=== PATIENT | male | born 1975 | race Asian ===

== ENCOUNTER 2019-10-22 00:03 | Emergency (ER) | payer OTHER ==
[~2019-10-22] VITALS: Ht 165.1 cm; Wt 81.6 kg
--- NOTE | 2019-10-22 00:17 | Emergency Room Report ---
History of Present Illness General Chief Complaint: Vomiting Source: Patient, Medical Record, EMS Present Illness HPI This is a 44-year-old male from a [place] [facility]. He presents with chief complaint of vomiting. Onset for last 4 hours. Vomiting is nonbloody nonbilious. No diarrhea. No fever or chills. Patient has a history of intracranial bleed with craniotomy. He has right-sided hemiplegia. Unable to get any other history from this patient because he is nonverbal. History is from [facility] [facility] note and EMS. Allergies: Coded Allergies: LISINOPRIL (Verified Allergy, Unknown, 10/22/19) NSAIDS (NON-STEROIDAL ANTI-INFLAMMA (Verified Allergy, Unknown, 10/22/19) Patient History Past Medical History: see triage record, old chart reviewed, CVA/TIA Past Surgical History: other - Craniotomy Pertinent Family History: none Social History: Denies: smoking Immunizations: other Reviewed Nursing Documentation: PMH: Agreed; PSxH: Agreed Nursing Documentation-PMH Hx Cardiac Problems: Yes - cardio myopathy; hf; anemia Hx Hypertension: Yes Hx Gastrointestinal Problems: Yes Hx Dialysis: No - ckd Hx Cerebrovascular Accident: Yes - tia Review of Systems Eye: Denies: eye pain, blurred vision ENT: Denies: ear pain, nose congestion, throat swelling Respiratory: Denies: cough, shortness of breath Cardiovascular: Denies: chest pain, palpitations Gastrointestinal: Reports: nausea, vomiting; Denies: abdominal pain, diarrhea Musculoskeletal: Denies: back pain, joint pain Skin: Denies: rash Neurological: Denies: headache, numbness Endocrine: Denies: increased thirst, increased urine Hematologic/Lymphatic: Denies: easy bruising All Other Systems: negative except mentioned in HPI Physical Exam Vital Signs Date Time Temp Pulse Resp B/P (MAP) Pulse Ox O2 Delivery O2 Flow Rate FiO2 10/22/19 00:02 97.5 74 18 138/96 (110) 96 Room Air Vitals normal Sp02 EP Interpretation: reviewed, normal General Appearance: well appearing, no apparent distress, alert Head: normocephalic, other - Left craniotomy Eyes: bilateral eye PERRL, bilateral eye EOMI ENT: hearing grossly normal, normal pharynx Neck: full range of motion, supple, no meningismus Respiratory: chest non-tender, lungs clear, normal breath sounds Cardiovascular #1: regular rate, rhythm, no murmur Gastrointestinal: normal bowel sounds, non tender, no mass, no organomegaly, no bruit, non-distended Musculoskeletal: back normal Neurologic: other - Right sided weakness Medical Decision Making Diagnostic Impression: Primary Impression: Vomiting Qualified Codes: R11.2 - Nausea with vomiting, unspecified ER Course Patient with nausea and vomiting. Could be an early enteritis. No evidence of any obstruction or acute abdomen. Better after Zofran and IV fluid. CT/MRI/US Diagnostic Results CT/MRI/US Diagnostic Results : Imaging Test Ordered: CT abdomen pelvis Impression Read by radiologist. Normal spleen. Left kidney stone. No obstruction. Normal appendix. No bowel obstruction. Last Vital Signs Date Time Temp Pulse Resp B/P (MAP) Pulse Ox O2 Delivery O2 Flow Rate FiO2 10/22/19 00:02 97.5 74 18 138/96 (110) 96 Room Air Status: improved Disposition: XFER SNF Condition: Improved Scripts Ondansetron Odt* (ZOFRAN ODT*) 4 Mg Tab.rapdis 4 MG BC EVERY 6 HOURS PRN for Nausea & Vomiting, #10 TAB 0 Refills Prov: Jose C Nascimento MD 10/22/19 Patient Instructions: Nausea and Vomiting, Adult Additional Instructions: Follow-up with your doctor in 2 3 days if not better. Return if symptoms worsen. Jose C Nascimento MD Oct 22, 2019 00:17
[2019-10-22 00:18] VITALS: BP 127/94
--- NOTE | 2019-10-22 00:18 | NUR ---
ED Nurse Note: Patient brought in by ambulance d/t nausea and vomiting lasting 4 hours prior to arrival, pt vomited x 6. Patient aao x 4, non ambulatory. Patient has hx of left side craniotomy. 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 No acute distress noted upon assessment. Addendum: 10/22/19 at 0112 by [facility] ED Nurse Note: Patient brought in by ambulance d/t nausea and vomiting lasting 4 hours prior to arrival, pt vomited x 6 prior to arrival. Patient aao x 3, nonverbal, non ambulatory. Patient able to make needs known through head nodding. Patient has hx of left side craniotomy. Patient's right arm contracted and per pt causes pain 10/10. 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 No acute distress noted upon assessment.
--- NOTE | 2019-10-22 00:24 | NUR ---
ED Nurse Note: Patient taken to CT in stable condition.
[2019-10-22 00:50] LABS: BASOPHILS % (AUTO) 1.5 % (0.0-2.0); EOSINOPHILS % (AUTO) 9.7 % (0.0-3.0); HEMOGLOBIN 13.3 G/DL (14.2-18.0); LYMPHOCYTES % (AUTO) 19.3 % (20.0-45.0); MEAN CORPUSCULAR VOLUME 88 FL (80-99); NEUTROPHILS % (AUTO) 63.5 % (45.0-75.0); PLATELET COUNT 252 K/UL (150-450); RED BLOOD COUNT 4.43 M/UL (4.70-6.10); RED CELL DISTRIBUTION WIDTH 12.2 % (11.6-14.8); WHITE BLOOD COUNT 7.6 K/UL (4.8-10.8)
--- NOTE | 2019-10-22 00:58 | Diagnostic Imaging Report ---
INDICATION: Abdominal pain TECHNIQUE: Continuous helical transaxial imaging of the abdomen and pelvis was obtained from the lung bases to the pubic symphysis. No intravenous contrast was administered. Coronal 2-D reformats were also obtained. Automatic Exposure Control was utilized. Total Dose length Product (DLP): 1333.[address] Dose Index Volume (CTDIvol): 20.9 mGy Comparison: none FINDINGS: Lungs: The visualized lung bases are clear. The heart is enlarged. Small hiatal hernia noted. Liver: No gross anomalies demonstrated. There is artifact from the patient's arms. Gallbladder/biliary system: No gallstones are identified. There is no evidence of intrahepatic or extrahepatic biliary ductal dilatation. Spleen: Unremarkable Pancreas: Unremarkable Kidneys: There is a tiny nonobstructive stone in the lower pole of the left kidney suspected. There is a small hypodensity nonspecific lower pole the left kidney. This could be cystic or solid and is indeterminate on the current study is obtained. The hypodensity measures about 18 mm. There is no hydronephrosis.. Adrenal glands: Unremarkable Bowel: Bowel gas pattern is nonobstructive. The appendix is normal. Bladder: Unremarkable Aorta/IVC: Some tortuosity of the aorta and mural calcium noted distally as well as within the iliac arteries. Peritoneum: There is no free fluid. Bones: Mild narrowing of the L5-S1 disc noted with vacuum phenomena. Vertebral endplate spurs demonstrated at multiple levels especially in the lower part of thoracic spine and at the mid to lower lumbar spine. There is a pars interarticularis defect at L5. There is a minimal anterolisthesis at L5-S1. IMPRESSION: Tiny nonobstructive stone in the left kidney. Indeterminate 18 mm hypodensity in the left kidney. Cystic versus solid. Further evaluation recommended. L5 spondylolysis. Mild anterolisthesis L5 on S1. Degenerative disease of the thoracolumbar spine. Cardiomegaly. Atherosclerotic vascular disease. Note: Evaluation of solid organs is limited on non contrast imaging. [facility] has communicated the preliminary results to the Emergency Department. Their findings are largely concordant with this report. The CT scanner at [facility] is accredited by the [employer] and the scans are performed using dose optimization techniques as appropriate to a performed exam including Automatic Exposure control.
[2019-10-22 01:00] LABS: APPEARANCE,URINE CLEAR; BILIRUBIN, URINE NEGATIVE (NEGATIVE); COLOR,URINE PALE YELLOW; GLUCOSE, URINE (UA) NEGATIVE (NEGATIVE); KETONES,URINE NEGATIVE (NEGATIVE); LEUKOCYTE ESTERASE ,URINE NEGATIVE (NEGATIVE); NITRITE,URINE NEGATIVE (NEGATIVE); PH,URINE 5 (4.5-8.0); UROBILINOGEN,URINE NORMAL MG/DL (0.0-1.0)
[2019-10-22 01:01] LABS: ANION GAP 8 mmol/L (5-15); BLOOD UREA NITROGEN 21 mg/dL (7-18); CALCIUM 9.1 MG/DL (8.5-10.1); CARBON DIOXIDE 28 MMOL/L (21-32); CHLORIDE 105 MMOL/L (98-107); CREATININE 1.8 MG/DL (0.55-1.30); POTASSIUM 3.8 MMOL/L (3.5-5.1); SODIUM 141 MMOL/L (136-145)
[2019-10-22 01:05] LABS: PROTEIN,URINE NEGATIVE (NEGATIVE)
[2019-10-22 01:06] LABS: ALANINE AMINOTRANSFERASE 13 U/L (12-78); ALBUMIN 3.4 G/DL (3.4-5.0); ALBUMIN/GLOBULIN RATIO 0.9 (1.0-2.7); ALKALINE PHOSPHATASE 58 U/L (46-116); ASPARTATE AMINO TRANSFERASE 19 U/L (15-37); BILIRUBIN,TOTAL 0.3 MG/DL (0.2-1.0)
[2019-10-22] MEDS ORDERED: ONDANSETRON ODT4 MG BC (01:40)
[2019-10-22 04:30] VITALS: BP 125/92
--- NOTE | 2019-10-22 04:30 | NUR ---
ED Nurse Note: Received patient from DANDRE Baca. Patient is sleeping, VSS at this time, skin is warm to touch, no acute distress noted. Waiting for transportation to send patient back.
[2019-10-22 06:14] VITALS: BP 130/74
--- NOTE | 2019-10-22 06:16 | NUR ---
ED Nurse Note: Patient was transfered back to the [facility] via private transportation [id number], BLS. Patient is AAO x4, VSS at this time, skin is intact, warm to touch. Patient was transfered with all belongings.
== END 2019-10-22 06:18 ==
LOC: EDBD 00:03 → EMR 00:21
DX: R11.2 Nausea with vomiting, unspecified (principal); I13.0 Hypertensive heart and chronic kidney disease with heart failure and stage 1 through stage 4 chronic kidney disease, or unspecified chronic kidney disease; N18.9 Chronic kidney disease, unspecified; I50.9 Heart failure, unspecified; Z86.73 Personal history of transient ischemic attack (TIA), and cerebral infarction without residual deficits; Z88.6 Allergy status to analgesic agent; Z88.8 Allergy status to other drugs, medicaments and biological substances
CPT/HCPCS: 36415; 74176; 80053; 81003; 83690; 85025; 96361; 96374; J2405; J7030; Z7502; 99284